=== PATIENT | female | born 1980 | race African-American/Black ===

== ENCOUNTER 2021-11-23 14:44 | Emergency (ER) | payer OTHER ==
[~2021-11-23] VITALS: Ht 175.3 cm; Wt 114.1 kg
[2021-11-23 14:58] VITALS: TEMP 99
[2021-11-23] MEDS ORDERED: LIPITOR 10MG10 MG PO (15:04)
[2021-11-23] MEDS ORDERED: ONE DAILY MULTI1 TA1 PO (15:04)
[2021-11-23 15:23] LABS: BASO % 0.3 % (0.0-2.0); EOS % 0.2 % (0.0-4.0); GRAN # 8.2 K/mm3 (1.4-6.5); GRAN % 66.3 % (42.2-75.2); HEMOGLOBIN 10.9 g/dl (12.5-16.0); LYMPH # 3.5 K/mm3 (1.2-3.4); LYMPH % 28.5 % (20.0-51.0); MEAN CELL VOLUME 84 fl (80.0-100.0); MEAN CORPUSCULAR HEMOGLOBIN 27 pg (27-31); MEAN CORPUSCULAR HGB CONC 32 g/dl (33.0-37.0); MEAN PLATELET VOLUME 9.2 fl (7.4-10.4); MONO # 0.6 K/mm3 (0.1-0.6); MONO % 4.4 % (1.7-9.3); PLATELET COUNT 466 K/mm3 (130-400); RED BLOOD COUNT 4.08 M/mm3 (4.10-5.30); REDCELL DISTRIBUTION WIDTH-CV 15.3 % (11.5-14.5)
[2021-11-23 15:27] LABS: HEMATOCRIT 34.4 % (37.0-47.0)
[2021-11-23 15:39] LABS: ANION GAP 10 mmol/L (7-16); BLOOD UREA NITROGEN 8 mg/dL (7-19); CALCIUM 9.2 mg/dL (8.4-10.2); CARBON DIOXIDE 24 mmol/L (22-29); CHLORIDE 106 mmol/L (98-107); CREATININE, serum 0.86 mg/dL (0.57-1.11); GLUCOSE 104 mg/dL (70-99); POTASSIUM 3.7 mmol/L (3.5-4.5); SODIUM 140 mmol/L (136-145)
[2021-11-23 16:00] LABS: TROPONIN-I < 0.010 ng/mL (0.00-0.033)
[2021-11-23 17:26] VITALS: BP 116/89; PULSE 84
== END 2021-11-23 17:14 | disposition home or self-care (01) ==
LOC: COL.ER 14:44
PROVIDERS: Emergency Medicine
DX: R07.89 Other chest pain (principal); D64.9 Anemia, unspecified; D72.829 Elevated white blood cell count, unspecified